=== PATIENT | female | born 1995 | race Caucasian/White ===

== ENCOUNTER 2017-03-29 04:01 | Emergency (ER) | payer SELFPAY ==
[2017-03-29] MEDS ORDERED: ASPIRIN 81 MG TABLET, CHEWABLE PO ONE (05:12)
[2017-03-29 05:30] LABS: ABSOLUTE BASOPHILS # (AUTO) 0.1 10^3/uL (0.0-0.2); ABSOLUTE EOSINOPHILS # (AUTO) 0.1 10^3/uL (0.0-0.6); ABSOLUTE LYMPHOCYTES (AUTO) 2.1 10^3/uL (0.5-4.7); ABSOLUTE MONOCYTES (AUTO) 0.3 10^3/uL (0.1-1.4); ABSOLUTE NEUT (AUTO) 3.5 10^3/uL (1.7-8.2); BASOPHILS % (AUTO) 1.5 % (0-2); EOSINOPHILS % (AUTO) 1.3 % (0-6); HEMATOCRIT 43.5 % (36.0-47.0); HEMOGLOBIN 14.9 g/dL (12.0-15.5); HGB HCT DIFFERENCE 1.2; LYMPHOCYTES % (AUTO) 34.1 % (13-45); MEAN CORPUSCULAR HEMOGLOBIN 29.5 pg (27.0-33.4); MEAN CORPUSCULAR HGB CONC 34.3 g/dL (32.0-36.0); MEAN CORPUSCULAR VOLUME 86 fl (80-97); MONOCYTES % (AUTO) 5.2 % (3-13); RED BLOOD COUNT 5.05 10^6/uL (3.72-5.28); RED CELL DISTRIBUTION WIDTH 12.3 % (11.5-14.0); SEGMENTED NEUTROPHILS % (AUTO) 57.9 % (42-78); WHITE BLOOD COUNT 6.1 10^3/uL (4.0-10.5)
[2017-03-29 05:47] LABS: ALANINE AMINOTRANSFERASE 32 U/L (9-52); ALBUMIN 4.9 g/dL (3.5-5.0); ALKALINE PHOSPHATASE 90 U/L (38-126); ANION GAP 18 (5-19); ASPARTATE AMINO TRANSFERASE 26 U/L (14-36); BILIRUBIN,DIRECT 0.4 mg/dL (0.0-0.4); BILIRUBIN,TOTAL 0.5 mg/dL (0.2-1.3); BLOOD UREA NITROGEN 11 mg/dL (7-20); CALCIUM 9.7 mg/dL (8.4-10.2); CARBON DIOXIDE 21 mmol/L (22-30); CHLORIDE 110 mmol/L (98-107); CREATINE KINASE 119 U/L (30-135); CREATININE RESULT 0.65 mg/dL (0.52-1.25); GLUCOSE 97 mg/dL (75-110); POTASSIUM 4.3 mmol/L (3.6-5.0); SODIUM 148.5 mmol/L (137-145); TOTAL PROTEIN 8.2 g/dL (6.3-8.2)
[2017-03-29 05:58] LABS: CREATINE KINASE MB 1.09 ng/mL (<4.55)
[2017-03-29 06:02] LABS: TROPONIN I < 0.012 ng/mL
[2017-03-29] MEDS ORDERED: NORMAL SALINE 1000 ML 1,000 ML IV PRN (06:14)
[2017-03-29 07:01] LABS: LIPASE 151.1 U/L (23-300)
--- NOTE | 2017-03-29 07:06 | ER Document Report ---
ED General - General Chief Complaint: Chest Pain Stated Complaint: CHEST DISCOMFORT TRAVEL OUTSIDE OF THE [place] IN LAST 30 DAYS: No - HPI Patient complains to provider of: palpitations chest discomfort Notes: Patient coming in for evaluation of palpitations chest discomfort. Patient states she's had multiple episodes palpitations in the past currently is in [employer] school and has been told by her structures to follow-up with her primary care physician is that she will have elevated heart rates within the classroom. Patient states normally she can hold her breath and laid out flat and return her heart rate to a normal rate. Patient does smoke does drink alcohol. Patient states that night prior to arrival she was celebrating [employer] drinking alcohol when she bent over to look at her father and the floor and chest discomfort started. Patient states also had elevated heart rate was unable to get her heart rate down to a normal level therefore came to the ER for further evaluation. Patient denies any fevers chills nausea vomiting. Patient states she is not . Patient states that her symptoms have resolved currently denies any recent travel - Related Data Allergies/Adverse Reactions: No Known Allergies Allergy (Unverified 03/29/17 04:16) Past Medical History - Social History Smoking Status: Never Smoker Family History: Reviewed & Not Pertinent Patient has suicidal ideation: No Patient has homicidal ideation: No Renal/ Medical History: Denies: Hx Peritoneal Dialysis Review of Systems - Review of Systems Constitutional: No symptoms reported EENT: No symptoms reported Cardiovascular: Chest pain, Palpitations Respiratory: No symptoms reported Gastrointestinal: No symptoms reported Genitourinary: No symptoms reported Female Genitourinary: No symptoms reported Musculoskeletal: No symptoms reported Skin: No symptoms reported Hematologic/Lymphatic: No symptoms reported Neurological/Psychological: No symptoms reported -: Yes All other systems reviewed and negative Physical Exam - Vital signs Vitals: Temp Pulse Resp BP Pulse Ox 98.2 F 111 H 18 135/99 H 98 03/29/17 04:11 03/29/17 04:11 03/29/17 04:11 03/29/17 04:11 03/29/17 04:11 Interpretation: Normal - General General appearance: Appears well, Alert - HEENT Head: Normocephalic, Atraumatic Eyes: Normal Pupils: PERRL - Respiratory Respiratory status: No respiratory distress Chest status: Nontender Breath sounds: Normal Chest palpation: Normal - Cardiovascular Rhythm: Regular Heart sounds: Normal auscultation Murmur: No - Abdominal Inspection: Normal Distension: No distension Bowel sounds: Normal Tenderness: Nontender Organomegaly: No organomegaly - Back Back: Normal, Nontender - Extremities General upper extremity: Normal inspection, Nontender, Normal color, Normal ROM , Normal temperature General lower extremity: Normal inspection, Nontender, Normal color, Normal ROM , Normal temperature, Normal weight bearing. No: Floridalma's sign - Neurological Neuro grossly intact: Yes Cognition: Normal Orientation: AAOx4 [place] Coma Scale Eye Opening: Spontaneous [place] Coma Scale Verbal: Oriented Rebekah Coma Scale Motor: Obeys Commands Rebekah Coma Scale Total: 15 Speech: Normal Motor strength normal: LUE, RUE, LLE, RLE Sensory: Normal - Psychological Associated symptoms: Normal affect, Normal mood - Skin Skin Temperature: Warm Skin Moisture: Dry Skin Color: Normal Course - Re-evaluation Re-evalutation: 03/29/17 08:07 Patient's symptoms could be underlining PSVT. Explained To the patient this time is no critical etiology seen. Patient does have elevated alcohol level and signs of dehydration. Encouraged patient to avoid all status and alcohol in the future and drink plenty water to stay hydrated. Patient states understanding patient agrees with discharge home I'll go up with primary care cardiology for possible Holter monitor testing. - Vital Signs Vital signs: Temp Pulse Resp BP Pulse Ox 98.2 F 111 H 12 108/75 100 03/29/17 06:18 03/29/17 06:18 03/29/17 07:01 03/29/17 07:01 03/29/17 07:01 - Laboratory Result Diagrams: 03/29/17 05:18 03/29/17 05:18 Laboratory results interpreted by me: 03/29/17 05:18 Sodium 148.5 H Chloride 110 H Carbon Dioxide 21 L Discharge - Discharge Clinical Impression: Chest discomfort, Palpitation Condition: Good Disposition: HOME, SELF-CARE Instructions: Chest Wall Pain ([facility]), Palpitations (Irregular or Rapid Heartrate ) ([facility]), Dehydration ([facility]) Additional Instructions: Your laboratory today shows no signs of any critical etiology separate for possibility of some dehydration. I would highly recommend following up with her primary care provider for further testing or the industrial engineering technician provided. More likely you will need to have a Holter monitor to evaluate for any arrhythmias. Please make sure you drink plenty of water to stay hydrated. Please avoid stimulants such as soda chocolate I would also recommend avoiding alcohol and smoking. Return to the ER symptoms worsen Forms: Smoking Cessation Education Referrals: PARADISE MOHR MD [ACTIVE STAFF] - Follow up as needed
[2017-03-29 07:15] VITALS: BP 108/75
--- NOTE | 2017-03-29 07:49 | EKG REPORT ---
SEVERITY:- OTHERWISE NORMAL ECG - SINUS ARRHYTHMIA, RATE 66-108 : Confirmed by: Leon Torres MD 29-Mar-2017 07:49:32
== END 2017-03-29 07:17 | disposition home or self-care (01) ==
LOC: ER 04:01
DX: R07.9 Chest pain, unspecified (principal); R00.2 Palpitations
CPT/HCPCS: 36415; 71020; 80053; 80307; 82550; 82553; 83690; 84484; 84703; 85025; 93005; 93010; 99285